=== PATIENT | female | born 2000 | race Caucasian/White ===

== ENCOUNTER 2020-11-18 09:52 | Observation (INO) | payer MEDICAID, OTHER ==
[~2020-11-18] VITALS: Ht 165.1 cm; Wt 79.8 kg
[2020-11-19] MEDS ORDERED: FOLIC ACID (05:53)
[2020-11-19] MEDS ORDERED: PREN1TAB78 PO (05:53)
[2020-11-19] MEDS ORDERED: CALCIUM (05:53)
== END 2020-11-18 12:55 | disposition home or self-care (01) ==
LOC: 8 EST LDRP 09:52
PROVIDERS: ADMIT Obstetrics & Gynecology; ATTEND Obstetrics & Gynecology
DX: O46.93 Antepartum hemorrhage, unspecified, third trimester (principal); Z3A.39 39 weeks gestation of pregnancy
CPT/HCPCS: 59025; G0378; 99281

== ENCOUNTER 2020-11-19 04:29 | Inpatient (IN) | payer MEDICAID ==
[~2020-11-19] VITALS: Ht 162.6 cm; Wt 79.8 kg
[2020-11-19] MEDS ORDERED: BUTORPHANOL TARTRATE 2 MG/ML VIAL IV PRN (05:45)
[2020-11-19] MEDS ORDERED: METHYLERGONOVINE MALEATE 0.2 MG/ML IM PRN (05:45)
[2020-11-19] MEDS ORDERED: NALOXONE HCL 0.4 MG/ML 1ML VIAL IM PRN (05:45)
[2020-11-19] MEDS ORDERED: CARBOPROST TROMETHAMINE 250 MCG/ML AMPUL IM PRN (05:45)
[2020-11-19] MEDS ORDERED: LIDOCAINE HCL 1% 20ML VIAL (Pyxis) INJ INFIL SCH (05:45)
[2020-11-19] MEDS: LACTATED RINGERS 1,000 ML IV SCH ×3 (05:50→19:56)
[2020-11-19] MEDS ORDERED: FOLIC ACID (05:53)
[2020-11-19] MEDS ORDERED: CALCIUM (05:53)
[2020-11-19] MEDS ORDERED: PREN1TAB78 PO (05:53)
[2020-11-19] MEDS ORDERED: MISOPROSTOL 200MCG TABLET VG SCH (06:00)
[2020-11-19] MEDS ORDERED: AMPICILLIN 2GM in NS 100ML 100 ML IV SCH (06:00)
[2020-11-19 06:38] LABS: BASOPHILS % 0.1 % (0.0-2.0); HEMATOCRIT. 36.6 % (36.0-48.0); HEMOGLOBIN. 12.4 g/dL (12.0-16.0); MEAN CORPUSCULAR HEMOGLOBIN 30.5 pg (28.0-32.0); MONOCYTES % 6.6 % (2.0-8.0); NEUTROPHILS % 84.3 % (40.0-76.0); PLATELET 158 x1000/uL (130-400); RED BLOOD CELL COUNT 4.07 mill/uL (4.2-5.4); RED CELL DISTRIBUTION WIDTH 14.4 % (11.6-14.6)
[2020-11-19 06:39] LABS: INR 0.9; PARTIAL THROMBOPLASTIN TIME 27.1 sec (23.4-31.0); PROTHROMBIN TIME 10.1 sec (9.6-11.0)
[2020-11-19 06:44] LABS: CLARITY URINE CLEAR (CLEAR); COLOR URINE YELLOW (YELLOW); KETONES URINE NEGATIVE (NEGATIVE); LEUKOCYTE ESTERASE URINE TRACE (NEGATIVE); NITRITE URINE NEGATIVE (NEGATIVE); OCCULT BLOOD URINE TRACE (NEGATIVE); PH URINE 6.5 (4.5-8.0); PROTEIN URINE NEGATIVE (NEGATIVE); SPECIFIC GRAVITY URINE 1.014 (1.005-1.030); UROBILINOGEN URINE 0.2 E.U./dL (0.2-1.0)
[2020-11-19 07:05] LABS: *AMPHETAMINES SCREEN URINE NEGATIVE (NEGATIVE)
[2020-11-19 07:06] LABS: *BARBITURATES SCREEN URINE NEGATIVE (NEGATIVE); *BENZODIAZEPINES SCREEN URINE NEGATIVE (NEGATIVE); *COCAINE SCREEN URINE NEGATIVE (NEGATIVE); METHADONE URINE SCREEN NEGATIVE (NEGATIVE); OPIATES URINE SCREEN NEGATIVE (NEGATIVE); PHENCYCLIDINE URINE SCREEN NEGATIVE (NEGATIVE)
[2020-11-19 07:07] LABS: CANNABINOID URINE SCREEN NEGATIVE (NEGATIVE)
[2020-11-19] MEDS: DEXT 5%/LR + PITOCIN 20UNITS/L 1,000 ML IV SCH ×2 (08:07→23:16)
[2020-11-19] MEDS ORDERED: CARBOPROST TROMETHAMINE 250 MCG/ML AMPUL IM ONE (08:14)
[2020-11-19] MEDS ORDERED: METHYLERGONOVINE MALEATE 0.2 MG/ML ONE (08:14)
[2020-11-19] MEDS ORDERED: ROPIVACAINE HCL/PF EPIDURAL 200 ML EP SCH (08:45)
[2020-11-19] MEDS ORDERED: AMPICILLIN 1,000 MG in SODIUM CHLORIDE 0.9% 50 ML IV SCH (12:00)
[2020-11-19] MEDS ORDERED: ACETAMINOPHEN 325MG TABLET PO NR (19:45)
[2020-11-20] VITALS (7 sets, daily range): BP systolic 91–123; BP diastolic 51–73
[2020-11-20] MEDS ORDERED: BISACODYL 10MG SUPP PR PRN
[2020-11-20] MEDS ORDERED: GLYCERIN/WITCH HAZEL LEAF MEDICATED PAD TOP PRN
[2020-11-20] MEDS ORDERED: LANOLIN OINT 7GM TUBE TOP PRN
[2020-11-20] MEDS ORDERED: HEMORRHOIDAL SUPP PR PRN
[2020-11-20] MEDS ORDERED: BENZOCAINE/LANOLIN/ALOE VERA SPRAY TOP PRN
[2020-11-20] MEDS ORDERED: RHO(D) IMMUNE GLOBULIN 300 MCG/SYR IM PRN
[2020-11-20] MEDS ORDERED: ACETAMINOPHEN WITH CODEINE 300/30MG TABLET PO PRN
[2020-11-20] MEDS ORDERED: DIPHENHYDRAMINE 25MG CAPSULE PO PRN
[2020-11-20] MEDS ORDERED: IBUPROFEN 400MG TABLET PO PRN
[2020-11-20] MEDS ORDERED: ONDANSETRON HCL 4MG/2ML INJ IV NR (00:15)
[2020-11-20] MEDS ORDERED: IBUPROFEN 800MG TABLET PO NR (00:15)
[2020-11-20] MEDS ORDERED: DEXT 5%/LR + PITOCIN 20UNITS/L 1,000 ML IV SCH (00:30)
[2020-11-20 06:22] LABS: HEMATOCRIT. 31.1 % (36.0-48.0); HEMOGLOBIN. 10.5 g/dL (12.0-16.0); MEAN CORPUSCULAR HEMOGLOBIN 30.2 pg (28.0-32.0); MEAN CORPUSCULAR VOLUME 89.8 fL (81.0-99.0); MEAN PLATELET VOLUME 10.7 fl (7.4-10.4); PLATELET 126 x1000/uL (130-400); RED BLOOD CELL COUNT 3.47 mill/uL (4.2-5.4); RED CELL DISTRIBUTION WIDTH 13.9 % (11.6-14.6)
[2020-11-20] MEDS: MAGNESIUM/ALUMINUM HYDROXIDE/SIMETHICONE 30ML UDC PO SCH ×4 (08:28→20:24)
[2020-11-20] MEDS: SIMETHICONE 80MG TABLET CHEW PO SCH ×4 (08:29→20:25)
[2020-11-20] MEDS: FERROUS SULFATE 325MG TABLET PO SCH ×2 (13:51→17:44)
[2020-11-20] MEDS: IBUPROFEN 800MG TABLET PO PRN ×2 (13:52→20:24)
[2020-11-20 14:57] LABS: HEPATITIS B SURFACE ANTIGEN NEGATIVE
[2020-11-20 15:08] LABS: PLATELET ESTIMATE SLIGHTLY DECREASED
[2020-11-20] MEDS ORDERED: DOCUSATE SODIUM 100MG CAPSULE PO SCH (21:00)
[2020-11-21 06:23] LABS: BASOPHILS % 0.2 % (0.0-2.0); EOSINOPHILS % 1.8 % (0.0-5.0); HEMATOCRIT. 29.4 % (36.0-48.0); HEMOGLOBIN. 9.6 g/dL (12.0-16.0); LYMPHOCYTES % 14.2 % (20.0-50.0); MEAN CORPUSCULAR HEMOGLOBIN 29.8 pg (28.0-32.0); MEAN CORPUSCULAR VOLUME 91.4 fL (81.0-99.0); MEAN PLATELET VOLUME 11.1 fl (7.4-10.4); MONOCYTES % 6.4 % (2.0-8.0); NEUTROPHILS % 77.4 % (40.0-76.0); PLATELET 123 x1000/uL (130-400); RED BLOOD CELL COUNT 3.22 mill/uL (4.2-5.4); RED CELL DISTRIBUTION WIDTH 14.2 % (11.6-14.6)
[2020-11-21 07:30] VITALS: BP 108/69
[2020-11-21] MEDS: MAGNESIUM/ALUMINUM HYDROXIDE/SIMETHICONE 30ML UDC PO SCH (08:36)
[2020-11-21] MEDS: FERROUS SULFATE 325MG TABLET PO SCH (08:36)
[2020-11-21] MEDS: SIMETHICONE 80MG TABLET CHEW PO SCH (08:37)
[2020-11-21] MEDS ORDERED: IBUP-2030 PO (09:02)
[2020-11-21] MEDS ORDERED: FERR325T23 PO (09:02)
== END 2020-11-21 11:40 | disposition home or self-care (01) | DRG 560 ==
LOC: OBSVTOIN 04:29 → 8 EST LDRP 04:29 → 8EST 11-20 00:56
PROVIDERS: ADMIT Obstetrics & Gynecology; ATTEND Obstetrics & Gynecology
PROC: 10E0XZZ Delivery of Products of Conception, External Approach (ICD-10-PCS; principal; 2020-11-19)
PROC: 0KQM0ZZ Repair Perineum Muscle, Open Approach (ICD-10-PCS; 2020-11-19)
PROC: 3E0R3BZ Introduction of Anesthetic Agent into Spinal Canal, Percutaneous Approach (ICD-10-PCS; 2020-11-19)
PROC: 00HU33Z Insertion of Infusion Device into Spinal Canal, Percutaneous Approach (ICD-10-PCS; 2020-11-19)
DX: O69.81X0 Labor and delivery complicated by cord around neck, without compression, not applicable or unspecified (principal); D62 Acute posthemorrhagic anemia; D72.829 Elevated white blood cell count, unspecified; O70.1 Second degree perineal laceration during delivery; O99.03 Anemia complicating the puerperium; O99.13 Other diseases of the blood and blood-forming organs and certain disorders involving the immune mechanism complicating the puerperium; Z37.0 Single live birth; Z3A.39 39 weeks gestation of pregnancy
CPT/HCPCS: 36415; 76805; 80305; 81003; 85025; 86592; 86703; 86762; 86850; 86900; 87340; 99281; J0290; J2210; J2405; J2590; J2795; J3010; J3490; J7120; A4315